=== PATIENT | female | born 1975 | race African-American/Black ===

== ENCOUNTER 2016-12-02 14:22 | Emergency (ER) | payer MEDICAID ==
[~2016-12-02] VITALS: Ht 167.6 cm; Wt 117.7 kg
[~2016-12-02 14:22] MED LIST: HYDR-3241 PO; LISI1TAB7 PO; LISINOPRIL; METF500T4 PO; METFORMIN; ONDA4TAB7 PO; POTA10TA11 PO; POTA10TA90 PO; POTASSIUM; POTASSIUM PO
[2016-12-02 14:24] VITALS: BP 129/85
[2016-12-02 15:22] LABS: ASPARTATE AMINO TRANSFERASE 11 U/L (15-37); BLOOD UREA NITROGEN 13 mg/dL (7-18)
[2016-12-02 15:32] LABS: IS PT STATUS REG ER OR PRE ER? YES
== END 2016-12-02 16:49 | disposition home or self-care (01) ==
LOC: ED 15:37
DX: R07.89 Other chest pain (principal); I10 Essential (primary) hypertension; E11.9 Type 2 diabetes mellitus without complications; R06.02 Shortness of breath
CPT/HCPCS: 36415; 71010; 80053; 81003; 84484; 85025; 85610; 85730; 93005; 99285

== ENCOUNTER 2018-09-24 16:11 | Inpatient (IN) | payer MEDICAID, OTHER ==
[~2018-09-24] VITALS: Ht 167.6 cm; Wt 136.0 kg
[~2018-09-24 16:11] MED LIST changes: +METF500T17 PO; -METF500T4 PO; +POTA10TA6 PO; -POTA10TA90 PO
--- NOTE | 2018-09-24 16:19 | NUR ---
bib by [facility] for Urgent Care for sob x 1.5 hours. Urgent Care 12 lead- afib w/ rate 100-120. on scene b/p 80/46. ems started 1 liter ns (infused 700ml by arrival.) on arrival reports continued sob; however, 113/72 no asa yet reports hx of ablation for unknown reason 12 lead obtained
[2018-09-24 16:53] LABS: MEAN CORPUSCULAR HEMOGLOBIN 28.8 pg (27.0-34.8); MEAN CORPUSCULAR HGB CONC 32.7 g/dL (32.4-35.8); MEAN PLATELET VOLUME 8.8 fL (7.4-10.4); PLATELET COUNT 327 x10^3/uL (130-400); RED BLOOD COUNT 4.15 x10^6/uL (3.82-5.3); RED CELL DISTRIBUTION WIDTH 16.1 % (9.6-15.2)
[2018-09-24 17:00] LABS: INTERNATIONAL NORMALIZED RATIO 0.98 (0.93-1.1); PROTHROMBIN TIME 10.3 Seconds (9.6-11.5)
[2018-09-24 17:02] LABS: ANION GAP 8 mmol/L (5-15); CALCIUM 8.3 mg/dL (8.5-10.1); CHLORIDE 109 mmol/L (98-107)
[2018-09-24 17:12] LABS: MD YES
[2018-09-24 17:14] LABS: ALANINE AMINOTRANSFERASE 23 U/L (12-78); ALKALINE PHOSPHATASE 90 U/L (45-117); BILIRUBIN,TOTAL 0.6 mg/dL (0.2-1.0); TOTAL PROTEIN 6.6 g/dL (6.4-8.2)
[2018-09-24 17:16] LABS: BANDS%(MANUAL) 4 % (0-7); BASOS#(MANUAL) 0.07 x10^3/uL (0-0.1); BASOS% (MANUAL) 1 % (0-1); EOS#(MANUAL) 0.37 x10^3/uL (0.0-0.4); EOS% (MANUAL) 5 % (1-7); LYMPH#(MANUAL) 3.48 x10^3/uL (1-3.4); LYMPHS% (MANUAL) 47 % (22-44); MONOS#(MANUAL) 0.44 x10^3/uL (0.3-2.7); MONOS% (MANUAL) 6 % (2-9); REACTIVE LYMPHS # (MANUAL) 0.07 x10^3/uL (0-0); REACTIVE LYMPHS % (MANUAL) 1 % (0-0); SEG#(MANUAL) 2.66 x10^3/uL (1.8-6.8); SEGS% (MANUAL) 36 % (42-75)
[2018-09-24 17:17] LABS: <PLATELET ESTIMATE> ADEQUATE; <PLT MORPHOLOGY> NORMAL PLT MORPH; HYPOCHROMIA 1+
--- NOTE | 2018-09-24 17:35 | NUR ---
PATIENT CONTINUES TO REPORT CHEST DISCOMFORT/SOB AT 07/29, HR 105-115, 120/71. PATIENT DESCIDED TO PROCEDED W/ CARDIOVERT/ PROVIDER MADE AWARE. ROOM SET UP. CLARIFIED NEED FOR ASA. PROVIDER DEFERRED TO ANTICOAGULATE W/ PO ANTICOGULANTS AFTER PROCEDURE
[2018-09-24] MEDS ORDERED: ETOMIDATE 20 MG/10 ML IVPush ONE (18:00)
[2018-09-24] MEDS ORDERED: ETOMIDATE 20 MG/10 ML ONE (18:06)
--- NOTE | 2018-09-24 18:30 | NUR ---
After room set up for cardioversion. Provider re-checked asa score as he found her tonsils quite swollen. Provider deferring cardioversion in replacement of chemical cardioversion for suspect airway. Patient agreeable. Vitals remain stable
--- NOTE | 2018-09-24 18:52 | NUR ---
Bedside report to gabby bob. procainemide just arrived from pharmacy- script writer/johnson bob witnessed administration. Med given through pump at 330ml/hr while pads connected to defib
[2018-09-24] MEDS ORDERED: DEXTROSE 5% IV ONE (19:00)
[2018-09-24] MEDS ORDERED: PROCAINAMIDE HCL IV ONE (19:00)
[2018-09-24] MEDS ORDERED: PROCAINAMIDE HCL 500 MG/ML, 2ML IV ONE (19:00)
--- NOTE | 2018-09-24 19:35 | NUR ---
PT CHANGE IN HEART RHYTHM. ERP AWARE. PT VSS. PT REMAINS ON CRASH CART PADS AT THIS TIME. PT A&OX4. NO C/O CHEST PAIN. FAMILY AT BEDSIDE.
--- NOTE | 2018-09-24 20:58 | NUR ---
UNABLE TO REACH FLOOR NURSE AT THIS TIME FOR REPORT.
[2018-09-24] MEDS ORDERED: PARO10TA56 PO (21:05)
[2018-09-24] MEDS ORDERED: ATOR40TA PO (21:05)
--- NOTE | 2018-09-24 21:20 | NUR ---
REPORT TO JEROD THOMAS FOR ROOM 506
[2018-09-24] MEDS ORDERED: ONDANSETRON ODT 4 MG PO PRN (21:30)
[2018-09-24] MEDS ORDERED: DOCUSATE 100 MG CAPSULE PO PRN (21:30)
[2018-09-24] MEDS ORDERED: ACETAMINOPHEN 325 MG TABLET PO PRN (21:30)
[2018-09-24] MEDS ORDERED: DILTIAZEM 5 MG/ML, 5ML IVPush PRN (21:30)
[2018-09-24 21:41] VITALS: BP 108/77
[2018-09-24] MEDS ORDERED: PAROXETINE 10 MG TABLET PO PRN (22:00)
[2018-09-25] MEDS: IBUPROFEN 600 MG TABLET PO PRN ×2 (00:18→15:02)
[2018-09-25 00:59] VITALS: BP 111/78
[2018-09-25] MEDS: METOPROLOL TARTRATE 25 MG TABLET PO SCH ×2 (06:20→17:38)
[2018-09-25 07:40] VITALS: BP 116/80
[2018-09-25] MEDS ORDERED: RIVAROXABAN 15 MG TABLET PO SCH (08:00)
[2018-09-25] MEDS ORDERED: HYDROCHLOROTHIAZIDE 25 MG TABLET PO SCH (09:00)
[2018-09-25] MEDS ORDERED: POTASSIUM CHLORIDE 10 MEQ TABLET.ER PO SCH (09:00)
[2018-09-25] MEDS ORDERED: LISINOPRIL 20 MG TABLET PO SCH (09:00)
[2018-09-25] MEDS ORDERED: RIVAROXABAN 20 MG TABLET PO SCH (09:00)
[2018-09-25] MEDS: metFORMIN 500 MG TABLET PO SCH ×2 (09:56→17:37)
[2018-09-25] MEDS ORDERED: MAGNESIUM SULFATE PMX 2GM/50ML 50 ML IV ONE (11:30)
[2018-09-25 12:54] VITALS: BP 113/83
[2018-09-25] MEDS ORDERED: RIVA20TA PO (13:37)
[2018-09-25] MEDS ORDERED: METO25TA35 PO (13:37)
[2018-09-25] MEDS ORDERED: ATORVASTATIN 40 MG TABLET PO SCH (21:00)
== END 2018-09-25 18:47 | disposition home or self-care (01) | DRG 310 ==
LOC: ED 21:00 → EDIP 21:30 → 5SO 21:31
PROVIDERS: ADMIT Student in an Organized Health Care Education/Training Program; ATTEND Student in an Organized Health Care Education/Training Program
DX: I48.91 Unspecified atrial fibrillation (principal); E11.9 Type 2 diabetes mellitus without complications; F17.200 Nicotine dependence, unspecified, uncomplicated; G47.33 Obstructive sleep apnea (adult) (pediatric); I11.9 Hypertensive heart disease without heart failure; J44.9 Chronic obstructive pulmonary disease, unspecified; Z82.49 Family history of ischemic heart disease and other diseases of the circulatory system; Z90.710 Acquired absence of both cervix and uterus; Z90.49 Acquired absence of other specified parts of digestive tract
CPT/HCPCS: 36415; 71045; 80053; 83735; 84443; 85025; 85610; 85730; 93005; 93306; 99285; G0378; J3475

== ENCOUNTER 2018-10-14 13:23 | Emergency (ER) | payer OTHER ==
[~2018-10-14] VITALS: Ht 165.1 cm; Wt 133.0 kg
[~2018-10-14 13:23] MED LIST changes: +ATOR40TA PO; +METO25TA35 PO; +PARO10TA56 PO; +RIVA20TA PO
--- NOTE | 2018-10-14 14:05 | NUR ---
PT TO ROOM AT THIS TIME
--- NOTE | 2018-10-14 14:39 | NUR ---
pt to ed for generalized abd pain and bloody urine and stool x a few days. pt connected to monitors. vss. edmd present for assessment. iv established. labs collected and sent. pt up self to rr with steady gait. ua collected and sent. no other needs at this time. awaiting further orders.
[2018-10-14 14:41] LABS: BASOPHILS # (AUTO) 0.02 x10^3/uL (0-0.1); BASOPHILS % (AUTO) 0 % (0-1); EOSINOPHILS % (AUTO) 4 % (1-7); LYMPHOCYTES # (AUTO) 2.76 x10^3/uL (1-3.4); LYMPHOCYTES % (AUTO) 36 % (22-44); MD NO; MEAN CORPUSCULAR HGB CONC 32.2 g/dL (32.4-35.8); MEAN CORPUSCULAR VOLUME 90.1 fL (80-100); MEAN PLATELET VOLUME 8.7 fL (7.4-10.4); MONOCYTES # (AUTO) 0.46 x10^3/uL (0.2-0.8); MONOCYTES % (AUTO) 6 % (2-9); NEUTROPHILS # (AUTO) 4.22 x10^3/uL (1.8-6.8); NEUTROPHILS % (AUTO) 54 % (42-75); PLATELET COUNT 379 x10^3/uL (130-400); RED BLOOD COUNT 4.34 x10^6/uL (3.82-5.3); RED CELL DISTRIBUTION WIDTH 16.4 % (9.6-15.2)
[2018-10-14 14:51] LABS: INTERNATIONAL NORMALIZED RATIO 1.14 (0.93-1.1); PROTHROMBIN TIME 11.9 Seconds (9.6-11.5)
[2018-10-14 14:53] LABS: ALANINE AMINOTRANSFERASE 25 U/L (12-78); ALBUMIN 3.6 g/dL (3.4-5.0); ANION GAP 4 mmol/L (5-15); CALCIUM 9.2 mg/dL (8.5-10.1); CHLORIDE 106 mmol/L (98-107); CREATININE 1.12 mg/dL (0.55-1.02)
[2018-10-14 14:55] LABS: ALKALINE PHOSPHATASE 133 U/L (45-117); BILIRUBIN,TOTAL 0.5 mg/dL (0.2-1.0); TOTAL PROTEIN 7.8 g/dL (6.4-8.2)
[2018-10-14 15:03] LABS: MICROSCOPIC AUTO
[2018-10-14 15:08] LABS: CULTURE INDICATED? YES
--- NOTE | 2018-10-14 15:46 | NUR ---
pt resting in room. vss. no needs expressed. call light in reach. awaiting ct.
--- NOTE | 2018-10-14 16:13 | NUR ---
pt to ct at this time.
--- NOTE | 2018-10-14 16:27 | NUR ---
pt back from ct. no needs expressed. tolerated well. awaiting resutls.
--- NOTE | 2018-10-14 16:41 | NUR ---
pt resting in room. vss. no needse xpressed. [facility] awaiting [facility] results.
--- NOTE | 2018-10-14 16:51 | NUR ---
all results back at this time. chart up for recheck.
[2018-10-14 17:41] VITALS: BP 123/79
--- NOTE | 2018-10-14 17:41 | NUR ---
pt resting in room. vss. no needs expressed. call light in reach. per edmd, plan to consult gi.
== END 2018-10-14 18:51 | disposition home or self-care (01) ==
LOC: ED 14:46
DX: K62.5 Hemorrhage of anus and rectum (principal); I10 Essential (primary) hypertension; E11.9 Type 2 diabetes mellitus without complications
CPT/HCPCS: 36415; 71046; 74021; 74177; 80053; 81001; 85025; 85610; 85730; 86850; 86900; 87086; 99284